=== PATIENT | female | born 1995 | race Caucasian/White ===

== ENCOUNTER 2020-07-23 15:04 | Outpatient (REF) | payer OTHER, SELFPAY ==
--- NOTE | 2020-07-23 15:15 | MR_ITS ---
EXAMINATION: UNENHANCED IV CONTRAST ENHANCED MRI OF THE BRAIN; UNENHANCED IV CONTRAST ENHANCED MRI OF THE ORBITS. 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 COMPARISON: None TECHNIQUE: Routine unenhanced IV contrast enhanced MRI of the brain; routine unenhanced IV contrast enhanced MRI of the orbits. Intravenous contrast: Gadavist 8 mL. FINDINGS: MRI brain: No intracranial hemorrhage, tumors or infarcts are noted. The ventricles and sulci are normal in size and configuration. No abnormal enhancement the brain is visualized. The cervicomedullary junction cerebellar tonsils are normal in configuration. No marrow signal abnormalities are identified. Normal flow related signal intensity is visualized in the major intrarenal vessels and dural sinuses. No lesions are noted in the region of the vestibular aqueducts. MRI orbits: The orbits and globes are normal in appearance. No abnormal optic nerve or retinal enhancement is visualized. The optic nerve sheaths are normal in caliber. The optic chiasm and optic nerves demonstrate normal caliber and contour. The extraocular muscles are normal in appearance. Incidental note is made of mild retained secretions within the left lateral aspect of the sphenoid sinus over a 1.1 cm diameter region. MR/MR head/brain wo/w con IMPRESSION: MRI brain: Normal. No intracranial tumors. No evidence of intracranial hemangioblastomas or endolymphatic sac tumors to correlate with the given history of blunt Hippel-Lindau disease. MRI orbits: Normal. No evidence of retinal tumors. No findings to correlate with a history of prior right-sided retinoblastoma.
--- NOTE | 2020-07-23 16:00 | MR_ITS ---
EXAMINATION: UNENHANCED IV CONTRAST ENHANCED MRI OF THE BRAIN; UNENHANCED IV CONTRAST ENHANCED MRI OF THE ORBITS. 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 COMPARISON: None TECHNIQUE: Routine unenhanced IV contrast enhanced MRI of the brain; routine unenhanced IV contrast enhanced MRI of the orbits. Intravenous contrast: Gadavist 8 mL. FINDINGS: MRI brain: No intracranial hemorrhage, tumors or infarcts are noted. The ventricles and sulci are normal in size and configuration. No abnormal enhancement the brain is visualized. The cervicomedullary junction cerebellar tonsils are normal in configuration. No marrow signal abnormalities are identified. Normal flow related signal intensity is visualized in the major intrarenal vessels and dural sinuses. No lesions are noted in the region of the vestibular aqueducts. MRI orbits: The orbits and globes are normal in appearance. No abnormal optic nerve or retinal enhancement is visualized. The optic nerve sheaths are normal in caliber. The optic chiasm and optic nerves demonstrate normal caliber and contour. The extraocular muscles are normal in appearance. Incidental note is made of mild retained secretions within the left lateral aspect of the sphenoid sinus over a 1.1 cm diameter region. MR/MR orbits face neck wo/w con IMPRESSION: MRI brain: Normal. No intracranial tumors. No evidence of intracranial hemangioblastomas or endolymphatic sac tumors to correlate with the given history of blunt Hippel-Lindau disease. MRI orbits: Normal. No evidence of retinal tumors. No findings to correlate with a history of prior right-sided retinoblastoma.
== END 2020-07-23 15:05 | disposition home or self-care (01) ==
LOC: HO.MRI 15:04
PROVIDERS: PCP Pediatrics; Visit Provider Psychiatry & Neurology Neurology
DX: Q85.8 Other phakomatoses, not elsewhere classified (principal)
CPT/HCPCS: 70543; 70553; A9585

== ENCOUNTER 2020-07-27 15:04 | Outpatient (REF) | payer OTHER, SELFPAY ==
--- NOTE | 2020-07-27 | MR_ITS ---
MR LUMBAR SPINE WITHOUT AND WITH CONTRAST CLINICAL INFORMATION: History of von Hippel-Lindau disease. COMPARISON: No images are available at the time of dictation. There is a lumbar spine MRI report dated 07/19/2015. TECHNIQUE: MRI of the lumbar spine was obtained using routine sequences with and without contrast. Intravenous contrast: Gadavist 8.5 mL. FINDINGS: There are 5 nonrib-bearing lumbar-type vertebral bodies. Lumbar alignment is normal. The vertebral body heights are maintained. The disc volumes are preserved and the discs remain well-hydrated. There is no bone marrow edema. There are no acute fractures. There is a 2 mm enhancing nodule inseparable from the left cauda equina nerve roots at the L1-L2 level and there is a 1 mm enhancing nodule inseparable from the dorsal cauda equina nerve roots at the upper L3 level. There is also likely a small 2 mm enhancing nodule along the left dorsal surface of the lower thoracic cord at the T12-L1 level on image 3 of series 8. The small enhancing nodules could reflect small enhancing nerve sheath tumors. Small hemangioblastomas are felt to be less likely given the lack of hemangioblastomas elsewhere along the spinal and intracranial axis. Conus terminates at the T12-L1 level. There are no significant soft tissue findings. Lumbar disc contours are normal. There is no central canal stenosis and there is no foraminal stenosis within the lumbar spine. MR/MR lumbar spine wo/w con IMPRESSION: There is a 2 mm enhancing nodule inseparable from the left cauda equina nerve roots at the L1-L2 level and there is a 1 mm enhancing nodule inseparable from the dorsal cauda equina nerve roots at the upper L3 level. There is also likely a small 2 mm enhancing nodule along the left dorsal surface of the lower thoracic cord at the T12-L1 level on image 3 of series 8. The small enhancing nodules could reflect small enhancing nerve sheath tumors. Small hemangioblastomas are felt to be less likely given the lack of hemangioblastomas elsewhere along the spinal and intracranial axis.
--- NOTE | 2020-07-27 | MR_ITS ---
EXAMINATION: MR CERVICAL SPINE WITHOUT AND WITH CONTRAST MR THORACIC SPINE WITHOUT AND WITH CONTRAST CLINICAL INFORMATION: Von Hippel-Lindau disease, hemangioblastoma. COMPARISON: MRI scan of the brain and cervical spine 07/23/2020. Reports of MRI scan of the cervical spine 04/05/2019 and 06/14/2017, and MRI scan of the thoracic spine 03/30/2019 [facility]. TECHNIQUE: MRI scans of the cervical and thoracic spine were obtained using routine sequences without and with contrast. Intravenous contrast: Gadavist 8.5 mL. FINDINGS: MRI Cervical Spine: VERTEBRAL BODIES AND PARASPINAL SOFT TISSUES: There is anatomic alignment of the vertebral bodies. Intervertebral disc heights are maintained. The vertebral bodies have normal height and contour. Marrow signal is homogenous. There is no abnormal osseous enhancement. There are mildly prominent cervical lymph nodes, the largest in the right level IIA region measuring 1.6 cm. There is no abnormal osseous enhancement. CERVICOMEDULLARY JUNCTION AND VISUALIZED POSTERIOR FOSSA: The craniocervical and posterior fossa structures are normal. There is mucoperiosteal thickening in the sphenoid sinuses. There is a well-defined 3.6 x 3.5 mm focus of intense homogenous enhancement along the dorsal aspect of the cervical spinal cord on the left at C6-C7 which appears intradural but extramedullary (image 19/26, sequence 4, and image 6/14, sequence 3), and was described on prior imaging. By report there it is not significantly changed in size. Elsewhere, spinal cord signal is normal. SPINAL LEVELS: C2-C3 through C7-T1: The facet joints appear normal. Posterior disc contours appear normal and there is no spinal cord compression or central stenosis. The neural foramina appear patent bilaterally. MRI Thoracic Spine: VERTEBRAL BODIES AND PARASPINAL STRUCTURES: There is anatomic alignment of the vertebral bodies. Intervertebral disc heights are maintained. The vertebral bodies of normal height and contour. No fractures are demonstrated. Marrow signal is homogenous. The visualized paravertebral structures are unremarkable. There is mild atelectasis at the posterior lung bases. The conus is at the level of T12-L1. Accounting for artifact, spinal cord signal appears normal. There is no abnormal intramedullary or intramedullary enhancement. SPINAL LEVELS: There is no significant spondylosis, and intervertebral disc contours are maintained. There is no central stenosis or spinal cord compression. The neural foramina are patent throughout the thoracic spine. MR/MR cervical spine wo/w con IMPRESSION: MRI cervical spine: 1. There is a 3.5 mm focus of uniform, intense enhancement along the dorsal lateral aspect of the cervical spinal cord at the level of C6-C7 which appears extramedullary, and intradural. By report it is not significantly changed compared to prior imaging. If prior studies become available, there has be made. 2. There is no significant spondylosis. There is no spinal cord compression or central stenosis. MRI thoracic spine: 1. Spinal cord signal appears normal, and there is no abnormal intramedullary or extramedullary enhancement. 2. There is no significant spondylosis, and there is no spinal cord compression, central stenosis or foraminal narrowing.
== END 2020-07-27 15:05 | disposition home or self-care (01) ==
LOC: HO.MRI 15:04
PROVIDERS: Visit Provider Psychiatry & Neurology Neurology
DX: Q85.8 Other phakomatoses, not elsewhere classified (principal)
CPT/HCPCS: 72156; 72157; 72158; A9585